=== PATIENT | female | born 1945 | race Hispanic/Latino ===

== ENCOUNTER → 2018-04-17 | Outpatient (CLI) | payer MEDICARE ==
--- NOTE | 2018-04-17 11:45 | Diagnostic Imaging Report ---
EXAM: SP LUMBAR, COMPLETE MIN 4VW DATE: 04/17/2018 10:32 AM INDICATION: Fall/pain COMPARISON: None FINDINGS: Underpenetration and body habitus limits evaluation, particularly of the lower thoracic and lumbar lumbar spine. Superior endplate height loss at L1 possible. Ill-defined sclerosis superior endplate L3. Mild endplate and moderate facet degenerative changes present. Calcifications in the pelvis presumably uterine. IMPRESSION: Limited exam as above. Questionable height loss at L1 and L3. Correlation with history. CT could be obtained if indicated. Endplate and facet degenerative changes as above. Signed by: Dr. Ramírez Salmeron MD on 04/17/2018 11:42 AM
--- NOTE | 2018-04-17 11:46 | Diagnostic Imaging Report ---
EXAM: SACRUM X-RAY DATE: 04/17/2018 10:32 AM INDICATION: Fall/pain COMPARISON: None FINDINGS: On the frontal view the sacrum is largely obscured by extensive pelvic calcifications, presumably uterine/fibroid related. Moderate degenerative changes in the SI joints present. No definite sacral/coccygeal fracture. IMPRESSION: Within limitations, no definite acute finding. Signed by: Dr. Ramírez Salmeron MD on 04/17/2018 11:43 AM
== END ==
LOC: RAD 10:22
PROVIDERS: ATTEND Internal Medicine
DX: M47.816 Spondylosis without myelopathy or radiculopathy, lumbar region (principal)
CPT/HCPCS: 72110; 72220

== ENCOUNTER → 2018-10-24 | Outpatient (CLI) | payer MEDICARE ==
--- NOTE | 2018-11-03 08:42 | Diagnostic Imaging Report ---
#[id number] - [id number] #BILATERAL DIGITAL SCREENING MAMMOGRAM WITH CAD: 10/24/2018 CLINICAL: Routine screening. Comparison is made to exams dated: 10/21/2012 mammogram and 09/18/2011 mammogram - [facility]. Current study contains 5 films. The tissue of both breasts is predominantly fatty. Current study was also evaluated with a Computer Aided Detection (CAD) system. Benign appearing calcifications are noted bilaterally. No significant masses, calcifications, or other findings are seen in either breast. IMPRESSION: BENIGN There is no mammographic evidence of malignancy. A 1 year screening mammogram is recommended. The patient will be notified by letter of the results. FARZAD MENDEZ M.D. ct/penrad:10/31/2018 14:56:49 Environmental Lawyer: Jazzy JAMISON(R)(M), [facility] letter sent: Normal Exam Mammogram BI-RADS: 2 Benign
== END ==
LOC: MAMMO 08:48
PROVIDERS: ATTEND Internal Medicine
DX: Z12.31 Encounter for screening mammogram for malignant neoplasm of breast (principal)
CPT/HCPCS: 77067

== ENCOUNTER → 2022-10-03 | Outpatient (CLI) | payer OTHER | LOC: MAMMO 09:31 | PROVIDERS: ATTEND Internal Medicine | DX: Z12.31 Encounter for screening mammogram for malignant neoplasm of breast (principal); M85.88 Other specified disorders of bone density and structure, other site | CPT/HCPCS: 77067; 77080 ==

== ENCOUNTER → 2023-02-13 | Outpatient (REF) | payer OTHER | LOC: RAD 11:44 | PROVIDERS: ATTEND Internal Medicine | DX: M54.32 Sciatica, left side (principal) | CPT/HCPCS: 72110 ==

== ENCOUNTER → 2023-09-09 | Outpatient (REF) | payer OTHER | LOC: MAMMO 09:26 | PROVIDERS: ATTEND Internal Medicine | DX: Z12.31 Encounter for screening mammogram for malignant neoplasm of breast (principal) | CPT/HCPCS: 77067 ==

== ENCOUNTER → 2024-09-08 | Outpatient (REF) | payer OTHER | LOC: MAMMO 13:59 | PROVIDERS: ATTEND Internal Medicine | DX: Z12.31 Encounter for screening mammogram for malignant neoplasm of breast (principal) | CPT/HCPCS: 77067 ==